=== PATIENT | female | born 1985 | race Two or more races ===

== ENCOUNTER 2017-09-05 23:45 | Emergency (ER) | payer MEDICARE, MEDICAID ==
[~2017-09-05] VITALS: Ht 162.6 cm; Wt 63.5 kg
--- NOTE | 2017-09-05 23:58 | NUR ---
MARIIA [id number] FROM PSYCH FACILITY. C/C GENERALIZED BODY PAIN, NOT ON PSYCHIATRIC HOLD. PT AOX3 RR EVEN AND UNLABORED. NO SOB NOTED. NAD NOTED. NO NVD AT THIS TIME. PT NOT DIAPHORETIC. PT PLACED ON MONITOR. PT DENIES SI /HI.
[2017-09-06] MEDS ORDERED: LISI2.5T2 PO (00:05)
[2017-09-06] MEDS ORDERED: TRAZ-144 PO (00:05)
[2017-09-06] MEDS ORDERED: AMLO2.5T PO (00:05)
[2017-09-06] MEDS ORDERED: OLAN2.5T3 PO (00:05)
[2017-09-06] MEDS ORDERED: BUPR-51 PO (00:05)
--- NOTE | 2017-09-06 00:06 | NUR ---
LAB AT BEDSIDE FOR BLOOD DRAW.
[2017-09-06 00:15] LABS: BASOPHILS % (AUTO) 0.4 % (0.0-2.0); EOSINOPHILS # (AUTO) 0.1 /CMM (0.0-0.7); EOSINOPHILS % (AUTO) 1.3 % (0.0-6.0); HEMATOCRIT 38 % (33-45); HEMOGLOBIN 12.6 g/dL (11.5-14.8); LYMPHOCYTES # (AUTO) 2.5 /CMM (0.8-4.8); LYMPHOCYTES % (AUTO) 29.3 % (20.0-44.0); MEAN CORPUSCULAR HEMOGLOBIN 31 PG (26.0-33.0); MEAN CORPUSCULAR HGB CONC 34 g/dl (31.0-36.0); MEAN CORPUSCULAR VOLUME 92 fL (82-100); MONOCYTES # (AUTO) 0.7 /CMM (0.1-1.30); MONOCYTES % (AUTO) 7.7 % (2.0-12.0); NEUTROPHILS # (AUTO) 5.2 /CMM (1.8-8.9); NEUTROPHILS % (AUTO) 61.3 % (43.0-81.0); PLATELET COUNT (AUTO) 370 /CMM (150-450); RDW COEFFICIENT OF VARIATION 13.3 (11.5-15.0); RED BLOOD CELL COUNT(AUTO) 4.08 MIL/uL (4.0-5.2); WHITE BLOOD COUNT (AUTO) 8.4 K/uL (4.3-11.0)
[2017-09-06 00:34] LABS: CALCIUM, SERUM 9.3 mg/dL (8.5-10.1); CARBON DIOXIDE 19 mmol/L (21-32); CHLORIDE 107 mmol/L (98-107); CREATININE 0.6 mg/dL (0.6-1.3); GLUCOSE 109 mg/dL (74-106); POTASSIUM 3.6 mmol/L (3.5-5.1); SODIUM SERUM 137 mmol/L (136-145); UREA NITROGEN, BLOOD 15 mg/dL (7-18)
[2017-09-06 00:39] LABS: ALANINE AMINOTRANSFERASE 24 U/L (12-78); ALBUMIN 3.5 g/dL (3.4-5.0); ALCOHOL, BLOOD < 3 mg/dL (0-0); ALKALINE PHOSPHATASE 57 U/L (46-116); ASPARTATE AMINOTRANSFERASE 12 U/L (15-37); BILIRUBIN,DIRECT 0.1 mg/dL (0.0-0.2); BILIRUBIN,TOTAL 0.3 mg/dL (0.2-1.0); TOTAL PROTEIN, SERUM 7.9 g/dL (6.4-8.2)
[2017-09-06 00:41] LABS: ACETAMINOPHEN 0 ug/ml (10-30); SALICYLATE 1.2 mg/dL (2.8-20.0)
--- NOTE | 2017-09-06 01:00 | NUR ---
URINE COLLECTED. SENT TO LAB
--- NOTE | 2017-09-06 02:19 | NUR ---
ART PAGED FOR PSYCH EVAL.
[2017-09-06 02:30] LABS: APPEARANCE,URINE SL CLOUDY (CLEAR); BILIRUBIN,URINE NEGATIVE (NEGATIVE); BLOOD, URINE TRACE Ery/uL (NEGATIVE); COLOR,URINE YELLOW (YELLOW); KETONES,URINE NEGATIVE (NEGATIVE); LEUKOCYTE ESTERASE ,URINE 3+ (NEGATIVE); NITRITE, URINE NEGATIVE (NEGATIVE); PROTEIN,URINE NEGATIVE (NEGATIVE); UGLUCOSE NEGATIVE (NEGATIVE); UROBILINOGEN,URINE 0.2 EU/dL (0.2)
[2017-09-06 03:28] LABS: BACTERIA,URINE None seen /HPF (None Seen); RBC,URINE 0-2 /HPF (0-2); SQUAMOUS EPITHELIAL CELL,UR Moderate /HPF (None Seen); TRICHOMONAS,URINE Many /HPF (None Seen)
[2017-09-06 03:29] LABS: MUCUS,URINE Few /LPF (None Seen)
--- NOTE | 2017-09-06 03:34 | NUR ---
ART AT BEDSIDE FOR PSYCH EVAL.
[2017-09-06] MEDS ORDERED: LORAZEPAM 1 MG TABLET PO ONE (04:00)
[2017-09-06] MEDS ORDERED: METRONIDAZOLE 500 MG TABLET PO ONE (04:00)
[2017-09-06] MEDS ORDERED: LORAZEPAM 1 MG TABLET ONE (04:04)
[2017-09-06] MEDS ORDERED: METRONIDAZOLE 500 MG TABLET ONE (04:05)
--- NOTE | 2017-09-06 04:33 | NUR ---
Patient eloped from facility. ER MD notified.
[2017-09-06 04:36] VITALS: BP 134/62
== END 2017-09-06 04:37 | disposition left against medical advice (07) ==
LOC: ER 23:49
DX: F25.9 Schizoaffective disorder, unspecified (principal); A59.01 Trichomonal vulvovaginitis; I10 Essential (primary) hypertension; J45.909 Unspecified asthma, uncomplicated; F32.9 Major depressive disorder, single episode, unspecified; Z88.8 Allergy status to other drugs, medicaments and biological substances
CPT/HCPCS: 36415; 80048; 80076; 80305; 80329; 81001; 85025; 87086; 99284; A4606; G0480 ×2; 81000-TC; Z7610

== ENCOUNTER 2018-01-19 08:53 | Emergency (ER) | payer MEDICARE, MEDICAID ==
[~2018-01-19] VITALS: Ht 162.6 cm; Wt 97.5 kg
[~2018-01-19 08:53] MED LIST: AMLO2.5T PO; BUPR-51 PO; LISI2.5T2 PO; OLAN2.5T3 PO; TRAZ-144 PO
--- NOTE | 2018-01-19 09:20 | NUR ---
[id number] FROM A FACILITY FOR CHEST PAIN X 3 DAYS, MIGRAINE AND "WHOLE BODY" PAIN AND URINARY FREQUENCY. PATIENT RECEIVED AWAKE AND ALERT, NOT IN DISTRESS. RESPIRATION EVEN AND UNLABORED. AFEBRILE. VSS
--- NOTE | 2018-01-19 09:25 | NUR ---
MD GIBBS AT BEDSIDE
[2018-01-19] MEDS ORDERED: KETOROLAC TROMETHAMINE 15 MG/ML VIAL ONE (09:39)
[2018-01-19] MEDS ORDERED: ONDANSETRON HCL/PF 4 MG/2 ML VIAL ONE (09:55)
[2018-01-19] MEDS ORDERED: IV NS 0.9% 1,000 ML BAG IV ONE (10:00)
[2018-01-19] MEDS ORDERED: KETOROLAC TROMETHAMINE INJ 30 MG/ML VIAL IV ONE (10:00)
[2018-01-19] MEDS ORDERED: ONDANSETRON HCL/PF 4 MG/2 ML VIAL IVP ONE (10:00)
[2018-01-19 10:08] LABS: BASOPHILS % (AUTO) 0.8 % (0.0-2.0); EOSINOPHILS # (AUTO) 0.1 /CMM (0.0-0.7); EOSINOPHILS % (AUTO) 1.1 % (0.0-6.0); HEMATOCRIT 36 % (33-45); HEMOGLOBIN 12.3 g/dL (11.5-14.8); LYMPHOCYTES # (AUTO) 1.5 /CMM (0.8-4.8); LYMPHOCYTES % (AUTO) 28.7 % (20.0-44.0); MEAN CORPUSCULAR HEMOGLOBIN 31 PG (26.0-33.0); MEAN CORPUSCULAR HGB CONC 35 g/dl (31.0-36.0); MEAN CORPUSCULAR VOLUME 90 fL (82-100); MONOCYTES # (AUTO) 0.3 /CMM (0.1-1.30); MONOCYTES % (AUTO) 5.7 % (2.0-12.0); NEUTROPHILS # (AUTO) 3.4 /CMM (1.8-8.9); NEUTROPHILS % (AUTO) 63.7 % (43.0-81.0); PLATELET COUNT (AUTO) 337 /CMM (150-450); RDW COEFFICIENT OF VARIATION 13.1 (11.5-15.0); RED BLOOD CELL COUNT(AUTO) 3.97 MIL/uL (4.0-5.2); WHITE BLOOD COUNT (AUTO) 5.3 K/uL (4.3-11.0)
[2018-01-19 10:10] LABS: APPEARANCE,URINE Clear (CLEAR); BILIRUBIN,URINE Negative (NEGATIVE); BLOOD, URINE Moderate Ery/uL (NEGATIVE); COLOR,URINE Yellow (YELLOW); KETONES,URINE Negative (NEGATIVE); LEUKOCYTE ESTERASE ,URINE Negative (NEGATIVE); NITRITE, URINE Negative (NEGATIVE); PROTEIN,URINE Negative (NEGATIVE); UGLUCOSE Negative (NEGATIVE); UROBILINOGEN,URINE 0.2 EU/dL (0.2)
[2018-01-19 10:23] LABS: CALCIUM, SERUM 9.1 mg/dL (8.5-10.1); CREATININE 0.7 mg/dL (0.6-1.3)
[2018-01-19 10:28] LABS: ALBUMIN 3.5 g/dL (3.4-5.0); BILIRUBIN,DIRECT 0.1 mg/dL (0.0-0.2); BILIRUBIN,TOTAL 0.2 mg/dL (0.2-1.0)
[2018-01-19 10:59] LABS: BACTERIA,URINE Few /HPF (None Seen); SQUAMOUS EPITHELIAL CELL,UR Few /HPF (None Seen); WBC,URINE 0-2 /HPF (0-3)
--- NOTE | 2018-01-19 11:23 | NUR ---
CALLED [facility] FOR S TRANSPORT - ETA 90 MIN - TRIP #[id number]
--- NOTE | 2018-01-19 13:44 | NUR ---
AWAITING FOR AMBULANZ. Patient is resting comfortably in bed with eyes closed. Easily aroused. VSS
[2018-01-19 13:54] VITALS: BP 128/80
--- NOTE | 2018-01-19 13:54 | NUR ---
[facility]. VERBALIZED UNDERSTANDING OF PLAN OF DISCHARGE.
== END 2018-01-19 13:55 | disposition home or self-care (01) ==
LOC: ER 08:54
DX: M79.1 Myalgia (principal); R07.89 Other chest pain; I10 Essential (primary) hypertension; J45.909 Unspecified asthma, uncomplicated; F32.9 Major depressive disorder, single episode, unspecified; Z88.8 Allergy status to other drugs, medicaments and biological substances
CPT/HCPCS: 36415; 71045-TC; 80048-TC; 80076-TC; 81000-TC; 83690-TC; 84703-TC; 85025-TC; A4606; J1885; J2405; J7030; J7040; Z7610